=== PATIENT | female | born 1975 | race Caucasian/White ===

== ENCOUNTER 2024-02-23 23:02 | Emergency (ER) | payer OTHER, SELFPAY ==
[2024-02-23 23:03] VITALS: BMI 25.6
[2024-02-23 23:24] VITALS: BP 167/87
[2024-02-24 01:17] LABS: % Basophils 0.7 % (0-2); % Eosinophils 1.3 % (0-6); % Immature Granulocytes 0.3 % (0-0.5); % Lymphocytes 35.7 % (20.5-51.1); % Monocytes 7.9 % (1.7-9.3); % Neutrophils 54.1 % (42.2-75.2); Absolute Basophils 0.1 10^3/uL (0-0.2); Absolute Eosinophils 0.1 10^3/uL (0-0.7); Absolute Lymphocytes 2.7 10^3/uL (1.2-3.4); Absolute Monocytes 0.6 10^3/uL (0.1-0.6); Hematocrit 37.3 % (37.0-47.0); Hemoglobin 12.9 g/dL (12.0-16.0); Mean Corp Hgb Conc. 34.6 g/dL (33.0-37.0); Mean Corpuscular Hgb 30.3 pg (27.0-31.0); Mean Corpuscular Volume 87.6 fL (81.0-99.0); Mean Platelet Volume 9.8 fL (7.4-10.4); Nucleated Red Blood Cells % 0 %; Platelet Count 296 10^3/uL (130-400); Red Blood Cell Count 4.26 10^6/uL (4.20-5.40); Red Cell Dist. Width 13.2 % (11.5-14.5); White Blood Cell Count 7.5 10^3/uL (4.8-10.8)
[2024-02-24 01:20] LABS: Urine Albumin Negative (Neg - Trace); Urine Bilirubin Negative (Negative); Urine Character Clear (Clear); Urine Color Straw; Urine Glucose Negative (Negative); Urine Ketone Trace (Negative); Urine Leukocyte Negative (Negative); Urine Nitrite Negative (Negative); Urine Occult Blood Negative (Negative); Urine Specific Gravity 1.005 (<1.030); Urine Urobilinogen Negative (Neg - 1+)
[2024-02-24 01:21] LABS: HCG, Serum Qualitative Screen Negative
[2024-02-24 01:26] LABS: ALT (SGPT) 18 U/L (0-35); AST (SGOT) 22 U/L (14-36); Albumin 4.4 g/dl (3.5-5.0); Alkaline Phosphatase 72 U/L (38-126); Blood Urea Nitrogen 12 mg/dl (7-17); Calcium 9.6 mg/dl (8.4-10.2); Carbon Dioxide 25 mmol/L (22-30); Chloride 106 mmol/L (98-107); Estimated Creatinine Clearance 60 ml/min; Glucose 99 mg/dl (70-99); Lipase 98 U/L (23-300); Potassium 4.3 mmol/L (3.5-5.1); Sodium 137 mmol/L (135-145); Total Bilirubin 0.2 mg/dl (0.2-1.3); Total Protein 7.3 g/dl (6.3-8.2); eGFR > 60.00
[2024-02-24] MEDS: NSS 1000 IV (01:52)
--- NOTE | 2024-02-24 01:53 | ED.GENMED ---
History of Present Illness
General
Chief Complaint: Abdominal Pain
Source: patient
Exam Limitations: none
Time Seen by Provider: 02/24/24 01:23
Nursing documentation reviewed up to this point in time: agreed with
Travel History
Have you had any contact with someone who has COVID-19?: No
Do you have any symptoms of coronavirus? Fever > 100 degrees, chills, cough, shortness of breath, sore throat, loss of taste or smell, muscle aches, or headache?: No
History of Present Illness
History of Present Illness:
This is a 48-year-old woman who has a history of irritable bowel syndrome, history of interstitial cystitis who complains of 1 week history of suprapubic discomfort, pressure as well as left lower quadrant pain that has worsened over the past 1-1/2
days. She does admit to urinary frequency and mild urgency and feels that she may have a UTI. She denies fever nor chills, no back nor flank pain. Previous UTI October of this year.
She is maintained on Uribel for interstitial cystitis and follows regularly with a urologist.
She has an old prescription for tramadol and took 1 today without relief of pain.
She does admit to mild chronic constipation but passed a normal bowel movement this afternoon without change in pain.
She has prior history of ovarian cysts. Review of previous records reveal pelvic ultrasound 2021 showing complex cystic mass right ovary that resolved on repeat imaging 2022.
Last menstrual period end of January, normal and on time. Maintained on control pills.
Past History
Past History
ED Past Medical History: Psychiatric (Anxiety, insomnia) and Other (Interstitial cystitis, irritable bowel syndrome)
ED Past Surgical History: Gynecological
Social History
Tobacco: Non-smoker
Alcohol: None
Personal:
Living: with family
Employment: Employed
Family History
Family History: Other (Noncontributory)
Phy Exam
Physical Exam
Physical Exam:
GENERAL: 48-year-old woman appears her stated age, bright and alert, pleasant, appears in no acute distress.
EYE:anicteric
NECK: Supple, nontender, no meningismus, no significant adenopathy.
ENT: oral mucosa is moist. No rhinorrhea.
CARDIAC: Regular rate and rhythm. no murmur.
LUNGS: Clear breath sounds bilaterally, no acute respiratory distress, no wheezes/rales/rhonchi
ABDOMEN: Soft, nondistended, minimal tenderness with deep palpation only to the left lower quadrant and suprapubic region without rebound or guarding nor rigidity. Mild palpable firm stool left lower quadrant. no cvat. normoactive BS.
NEUROLOGICAL: Alert and oriented x3, no focal neuro deficits. Gait is steady.
SKIN: Warm and dry, normal color, skin intact. No rash.
MUSCULOSKELETAL: No C/C/E. peripheral pulses are full and equal b/l. No palpable tenderness.
PSYCH: Normal and appropriate interaction.
Course
Orders/Labs/Results
Orders:
Orders
02/23/24 23:29
IV Insert/Care/Rem.- Treatment PRN
Complete Blood Count/With Diff Urgent
Comprehensive Metabolic Panel Urgent
HCG, Serum Qualitative Screen Urgent
Lipase Urgent
Urinalysis Reflex To Culture Urgent
Date Specimen was Collected: 02/23/24
Time Specimen was Collected: 23:30
02/23/24 23:30
Test Result ONCE
02/24/24 01:37
0.9% Sodium Chloride 1000 ml [Nss] 1,000 ml IV BOLUS
02/24/24 01:38
US Pelvis Only (non-obstetric) Urgent
Comment:
Reason For Exam: suprapubic, L pelvic pain x 1 week-worse x 1 day
02/24/24 04:10
Phenazopyridine HCl [Pyridium] 200 mg PO NOW STA
Abnormal Lab Results
02/24/24
01:00
Creatinine 1.1 H mg/dL
(0.6-1.0)
Urine Ketones Trace A
(Negative)
02/24/24 01:00
02/24/24 01:00
Vital Signs
Initial and Last Documented VS:
Initial Vital Signs
Temp Pulse Resp BP Pulse Ox
98.9 F 92 20 167/87 99
02/23/24 23:24 02/23/24 23:24 02/23/24 23:24 02/23/24 23:24 02/23/24 23:24
Last Documented Vital Signs
Temp Pulse Resp BP Pulse Ox
98.9 F 81 20 139/78 97
02/23/24 23:24 02/24/24 05:21 02/24/24 05:21 02/24/24 05:21 02/24/24 05:21
MDM/Problems Addressed
Differential Diagnosis Includes:
Concern for ovarian cyst, ovarian torsion, constipation, UTI, exacerbation of interstitial cystitis, exacerbation of irritable bowel, diverticulitis.
Labs thus far unremarkable with normal white blood cell count, normal chemistries. Urinalysis is pending.
Will plan for pelvic ultrasound assess for potential ovarian cyst/torsion/free fluid.
Chronic conditions affecting care: Other (Interstitial cystitis, irritable bowel syndrome)
*Radiology
Radiology exam reviewed: radiology read reviewed
*Pulse Oximetry
Patient hypoxic: no
*Critical Care Note
Total Time (30-74mins, 75-104mins- exclusive of procedures): Not Applicable
Update Note
Update Note:
Patient continues to appear comfortable.
Labs are all unremarkable with normal white blood cell count, unremarkable chemistries, unremarkable urinalysis.
Pelvic ultrasound shows no evidence of ovarian cyst, no evidence of torsion, no free fluid.
Patient continues to appear comfortable with overall reassuring abdominal exam there is only minimal suprapubic tenderness with deep palpation only, no further tenderness to the left lower quadrant and abdomen is overall soft and benign.
With reassuring labs, unremarkable urinalysis and unremarkable ultrasound at this point no indication for CT of the abdomen and pelvis.
I suspect her suprapubic discomfort is interstitial cystitis in nature and recommend short course of Pyridium for as needed discomfort and to continue Uribel along with prompt follow-up with urologist as well as PCP.
ED Attending Note
-
Portions of this chart may have been created with voice recognition software.� Occasional wrong word or��sound alike� substitutions may have occurred due to the inherent limitations of voice recognition software.
Discharge Plan
Departure
Patient Disposition: Home (Routine Discharge)
Date of Disposition: 02/24/24
Time of Disposition: 04:25
Patient with high blood pressure during this ER visit?: Yes
Condition: Good
Discharge Problem:
Abdominal pain, suprapubic, Pain due to interstitial cystitis
Instructions: Bladder Pain Syndrome (Interstitial Cystitis) (DC)
Prescriptions:
New
phenazopyridine [Pyridium] 200 mg tablet
200 mg PO TID PRN (Reason: bladder pain) 7 Days Qty: 14 0RF
No Action
acetaminophen [Tylenol Extra Strength] 500 MG tablet
1,000 mg PO Q6HPRN PRN (Reason: pain)
bupropion HCl 300 MG tablet extended release 24 hr
300 mg PO DAILY
meclizine 25 MG tablet
25 mg PO Q8H Qty: 15 0RF
pseudoephedrine HCl [Sudogest] 30 MG tablet
30 mg PO Q4HPRN PRN (Reason: nasal congestion) Qty: 15 0RF
ibuprofen 600 MG tablet
600 mg PO Q6HPRN PRN (Reason: pain) Qty: 20 0RF
amoxicillin-pot clavulanate 1 TABLET tablet
1 tab PO Q12 Qty: 14 0RF
Referrals:
Merle Jackman DO [Family Provider] - Call in 1-3 days for appt
Activity Restrictions/Additional Instructions:
Follow-up with your urologist this week for recheck.
Interventions
Interventions:
*Risk Screen - Suicide Last Done: 02/23/24 23:24
*General Assessment Last Done: 02/23/24 23:24
*Neglect/Abuse Screening Last Done: 02/23/24 23:24
ED- Fall Risk Assessment Last Done: 02/23/24 23:24
*ED COVID-19 Vaccine History Last Done: 02/23/24 23:24
*Nursing Disposition Last Done: 02/24/24 05:26
[facility]-My[facility]u-Xyaahgdvrd Assessment Last Done: 02/24/24 01:52
Discharge Date and Time
Discharge Date/Time: 02/24/24 05:27
Print Language: MALTESE
[2024-02-24 02:37] VITALS: BP 141/71
[2024-02-24] MEDS: Pyridium 200 MG PO (04:56)
[2024-02-24 05:21] VITALS: BP 139/78
== END 2024-02-24 05:27 | disposition home or self-care (01) ==
LOC: EMR 23:02
PROVIDERS: EMERGENCY PHYSICIAN Emergency Medicine; FAMILY PHYSICIAN Internal Medicine
DX: R10.2 Pelvic and perineal pain (principal); N30.10 Interstitial cystitis (chronic) without hematuria; R03.0 Elevated blood-pressure reading, without diagnosis of hypertension
CPT/HCPCS: 99284; 96360; 76856; 80053; 81003; 83690; 84703; 85025

== ENCOUNTER 2024-10-04 20:57 | Emergency (ER) | payer OTHER, SELFPAY ==
[2024-10-04 21:00] VITALS: BP 150/80
[2024-10-04 21:27] VITALS: BMI 28.8
[2024-10-04 21:28] VITALS: BP 129/72
[2024-10-04 21:29] LABS: Urine Albumin Negative (Neg - Trace); Urine Bilirubin Negative (Negative); Urine Character Clear (Clear); Urine Color Yellow; Urine Glucose Negative (Negative); Urine Ketone Negative (Negative); Urine Leukocyte Negative (Negative); Urine Nitrite Negative (Negative); Urine Occult Blood Negative (Negative); Urine Urobilinogen Negative (Neg - 1+)
--- NOTE | 2024-10-04 21:42 | ED.GENMED ---
History of Present Illness
General
Chief Complaint: Urinary Symptoms
Source: patient
Time Seen by Provider: 10/04/24 21:14
History of Present Illness
History of Present Illness:
49-year-old female presents emergency room complaining of bilateral flank pain. Patient has been experience the pain for the past week or so. She had blood work performed by her primary care doctor couple days ago and she was told her creatinine
was abnormally high. She was instructed to get imaging to rule out any kidney problems. In addition the patient has noted some increased dysuria and frequency. No fever or chills. Movement does not seem to make her back pain any worse.
Past History
Past History
ED Past Medical History: Psychiatric (Anxiety, insomnia) and Other (Interstitial cystitis, irritable bowel syndrome)
ED Past Surgical History: Gynecological
Social History
Tobacco: Non-smoker
Alcohol: None
Personal:
Living: with family
Employment: Employed
Family History
Family History: Other (Noncontributory)
Phy Exam
Physical Exam
Physical Exam:
General: Awake, Alert, Oriented X3. No acute distress.
Vitals: unremarkable
Head: Atraumatic
Eyes: Pupils equal, EOMI
Throat: Airway intact, no exudates
Neck: Trachea midline
Lungs: Clear and equal b/l
Heart: Regular rate, no murmurs
Abd: Soft, very mild suprapubic tenderness, No pulsatile mass
Back: Mild CVA tenderness bilateral
Neuro: Nonfocal
Skin: Warm, dry, no rash
Extremities: pulses equal b/l, no edema
Course
Orders/Labs/Results
Orders:
Orders
10/04/24 21:22
Complete Blood Count/With Diff Urgent
Comprehensive Metabolic Panel Urgent
Urinalysis Reflex To Culture Urgent
Date Specimen was Collected: 10/04/24
Time Specimen was Collected: 21:14
10/04/24 21:41
US Renal With Bladder Urgent
Comment:
Reason For Exam: flank pain, elevated creat
Abnormal Lab Results
10/04/24
21:22
RBC 4.05 L 10^6/uL
(4.20-5.40)
Hct 35.9 L %
(37.0-47.0)
Absolute Monos (auto) 0.7 H 10^3/uL
(0.1-0.6)
10/04/24 21:22
10/04/24 21:22
Vital Signs
Initial and Last Documented VS:
Initial Vital Signs
Temp Pulse Resp BP Pulse Ox
98.3 F 84 19 150/80 100
10/04/24 21:00 10/04/24 21:00 10/04/24 21:00 10/04/24 21:00 10/04/24 21:00
Last Documented Vital Signs
Temp Pulse Resp BP Pulse Ox
98.3 F 84 19 116/70 97
10/04/24 21:00 10/04/24 21:00 10/04/24 21:00 10/04/24 22:00 10/04/24 22:45
MDM/Problems Addressed
Differential Diagnosis Includes:
Low back strain, urinary tract infection, kidney stone
MDM/Problems Addressed:
Labs here tone normal. Ultrasound of the kidneys and bladder is also normal. Patient's discomfort likely related to musculoskeletal back pain. Stable for discharge home.
*Radiology
Radiology exam reviewed: radiology read reviewed
*Pulse Oximetry
Patient hypoxic: no
*Critical Care Note
Total Time (30-74mins, 75-104mins- exclusive of procedures): Not Applicable
ED Attending Note
-
Portions of this chart may have been created with voice recognition software.� Occasional wrong word or��sound alike� substitutions may have occurred due to the inherent limitations of voice recognition software.
Discharge Plan
Departure
Patient Disposition: Home (Routine Discharge)
Date of Disposition: 10/04/24
Time of Disposition: 22:42
Patient with high blood pressure during this ER visit?: No
Condition: Good
Discharge Problem:
Bilateral flank pain
Instructions: Back Pain
Prescriptions:
No Action
acetaminophen [Tylenol Extra Strength] 500 MG tablet
1,000 mg PO Q6HPRN PRN (Reason: pain)
bupropion HCl 300 MG tablet extended release 24 hr
300 mg PO DAILY
meclizine 25 MG tablet
25 mg PO Q8H Qty: 15 0RF
pseudoephedrine HCl [Sudogest] 30 MG tablet
30 mg PO Q4HPRN PRN (Reason: nasal congestion) Qty: 15 0RF
ibuprofen 600 MG tablet
600 mg PO Q6HPRN PRN (Reason: pain) Qty: 20 0RF
amoxicillin-pot clavulanate 1 TABLET tablet
1 tab PO Q12 Qty: 14 0RF
phenazopyridine [Pyridium] 200 mg tablet
200 mg PO TID PRN (Reason: bladder pain) 7 Days Qty: 14 0RF
Referrals:
Merle Jackman, DO [Family Provider] -
Activity Restrictions/Additional Instructions:
Your kidney function test is normal today. Your ultrasound is also normal. Suspect your back pain is more related to musculoskeletal back pain. You can use Tylenol Motrin as needed.
Interventions
Interventions:
*Risk Screen - Suicide Last Done: 10/04/24 21:00
*General Assessment Last Done: 10/04/24 21:27
*Neglect/Abuse Screening Last Done: 10/04/24 21:00
ED- Fall Risk Assessment Last Done: 10/04/24 21:35
*ED COVID-19 Vaccine History Last Done: 10/04/24 21:00
*Nursing Disposition Last Done: 10/04/24 22:55
ED-Female Genitourinary Assessment Last Done: 10/04/24 21:15
Discharge Date and Time
Discharge Date/Time: 10/04/24 22:58
Print Language: HUNGARIAN
[2024-10-04 21:46] LABS: % Basophils 0.6 % (0-2); % Eosinophils 1.2 % (0-6); % Immature Granulocytes 0.2 % (0-0.5); % Lymphocytes 29.4 % (20.5-51.1); % Monocytes 7.3 % (1.7-9.3); % Neutrophils 61.3 % (42.2-75.2); Absolute Basophils 0.1 10^3/uL (0-0.2); Absolute Eosinophils 0.1 10^3/uL (0-0.7); Absolute Lymphocytes 2.6 10^3/uL (1.2-3.4); Absolute Monocytes 0.7 10^3/uL (0.1-0.6); Absolute Neutrophils 5.5 10^3/uL (1.4-6.5); Hematocrit 35.9 % (37.0-47.0); Hemoglobin 12.2 g/dL (12.0-16.0); Mean Corpuscular Hgb 30.1 pg (27.0-31.0); Mean Corpuscular Volume 88.6 fL (81.0-99.0); Nucleated Red Blood Cells % 0 %; Platelet Count 305 10^3/uL (130-400); Red Blood Cell Count 4.05 10^6/uL (4.20-5.40); Red Cell Dist. Width 12.8 % (11.5-14.5); White Blood Cell Count 8.9 10^3/uL (4.8-10.8)
[2024-10-04 21:52] LABS: ALT (SGPT) 14 U/L (0-35); AST (SGOT) 18 U/L (14-36); Albumin 4.2 g/dl (3.5-5.0); Alkaline Phosphatase 61 U/L (38-126); Blood Urea Nitrogen 10 mg/dl (7-17); Carbon Dioxide 28 mmol/L (22-30); Chloride 101 mmol/L (98-107); Estimated Creatinine Clearance 72 ml/min; Glucose 76 mg/dl (70-99); Potassium 3.9 mmol/L (3.5-5.1); Sodium 135 mmol/L (135-145); Total Bilirubin 0.2 mg/dl (0.2-1.3); Total Protein 6.7 g/dl (6.3-8.2); eGFR > 60.00
[2024-10-04 22:00] VITALS: BP 116/70
== END 2024-10-04 22:58 | disposition home or self-care (01) ==
LOC: EMR 20:57
PROVIDERS: EMERGENCY PHYSICIAN Emergency Medicine; FAMILY PHYSICIAN Internal Medicine
DX: R10.9 Unspecified abdominal pain (principal); M54.9 Dorsalgia, unspecified; R30.0 Dysuria
CPT/HCPCS: 99284; 76770; 80053; 81003; 85025

== ENCOUNTER 2025-09-24 21:32 | Emergency (ER) | payer OTHER, SELFPAY ==
[2025-09-24 21:34] VITALS: BP 109/70
[2025-09-24 22:20] VITALS: BP 117/56
[2025-09-24 22:32] LABS: Hematocrit 33.3 % (37.0-47.0); Hemoglobin 11.1 g/dL (12.0-16.0); Mean Corp Hgb Conc. 33.3 g/dL (33.0-37.0); Mean Corpuscular Volume 88.8 fL (81.0-99.0); Nucleated Red Blood Cells % 0 %; Platelet Count 381 10^3/uL (130-400); Red Cell Dist. Width 12.7 % (11.5-14.5)
[2025-09-24 22:47] LABS: APTT 29.5 Sec (23.4-35.0)
[2025-09-24 22:54] LABS: ALT (SGPT) 11 U/L (0-35); AST (SGOT) 16 U/L (14-36); Albumin 4.6 g/dl (3.5-5.0); Alkaline Phosphatase 61 U/L (38-126); Blood Urea Nitrogen 9 mg/dl (7-17); Calcium 9.7 mg/dl (8.4-10.2); Carbon Dioxide 25 mmol/L (22-30); Chloride 104 mmol/L (98-107); Glucose 69 mg/dl (70-99); Potassium 4.0 mmol/L (3.5-5.1); Sodium 134 mmol/L (135-145); Total Protein 7.5 g/dl (6.3-8.2); eGFR 54.80
[2025-09-25] VITALS: BP 111/63
[2025-09-25] MEDS: NSS 1000 IV (00:45)
--- NOTE | 2025-09-25 00:54 | ED.GENMED ---
History of Present Illness
General
Chief Complaint: Dizziness
Source: patient
Exam Limitations: none
Time Seen by Provider: 09/24/25 23:05
Nursing documentation reviewed up to this point in time: agreed with
History of Present Illness
History of Present Illness:
50-year-old female presenting to the emergency department today with concerns of lightheadedness. She believes this is from ongoing bleeding over the past 2 months was deemed to be from a dental myosis and fibroids. She was placed on progesterone
but has not had significant improvement. Noted some lightheadedness today which prompted her to come to the ER. Has had some intermittent cramping as well in the pelvic region. Denies any specific chest pain fevers or upper respiratory
Past History
Past History
ED Past Medical History: Psychiatric (Anxiety, insomnia) and Other (Interstitial cystitis, irritable bowel syndrome)
ED Past Surgical History: Gynecological
Social History
Tobacco: Non-smoker
Alcohol: None
Personal:
Living: with family
Employment: Employed
Family History
Family History: Other (Noncontributory)
Review of Systems
Review of Systems
Allergies reviewed?: Yes
All Other Systems: ROS reviewed and negative except as documented in HPI and ROS
Phy Exam
Physical Exam
Physical Exam:
GENERAL: Alert , in no apparent distress
EYE: pupils equal and reactive
NECK: Supple, no significant adenopathy.
ENT: o/p clr, mmm.
CARDIAC: Regular rate and rhythm .
LUNGS: Clear breath sounds bilaterally, no acute respiratory distress, no wheezes/rales/rhonchi
ABDOMEN: Soft, without focal tenderness, no r/g, no cvat
NEUROLOGICAL: Alert and oriented, no focal neuro deficits
SKIN: Warm and dry, skin intact.
MUSCULOSKELETAL: No edema, well perfused.
PSYCH: Normal and appropriate interaction.
Course
Orders/Labs/Results
Orders:
Orders
09/24/25 22:16
Type And Crossmatch [Type+Screen] Urgent
Complete Blood Count/With Diff Urgent
Comprehensive Metabolic Panel Urgent
PTT Urgent
09/24/25 23:11
EKG [Electrocardiogram (*1)] Urgent
Reason for Study: Vertigo / Dizzy
EKG- Treatment ONCE
09/24/25 23:48
0.9% Sodium Chloride 1000 ml [Nss] 1,000 ml IV BOLUS
09/25/25 00:00
US Pelvis Only (non-obstetric) Urgent
Reason For Exam: bleeding pain
Abnormal Lab Results
09/24/25 09/25/25
22:16 00:48
RBC 3.75 L 10^6/uL
(4.20-5.40)
Hgb 11.1 L g/dL
(12.0-16.0)
Hct 33.3 L %
(37.0-47.0)
Sodium 134 L mmol/L
(135-145)
Creatinine 1.2 H mg/dL
(0.6-1.0)
Glucose 69 L mg/dl
(70-99)
POC Glucose 115 H mg/dl
(70-99)
09/24/25 22:16
09/24/25 22:16
Vital Signs
Initial and Last Documented VS:
Initial Vital Signs
Temp Pulse Resp BP Pulse Ox
98.6 F 91 18 109/70 98
09/24/25 21:34 09/24/25 21:34 09/24/25 21:34 09/24/25 21:34 09/24/25 21:34
Last Documented Vital Signs
Temp Pulse Resp BP Pulse Ox
98.6 F 68 19 111/63 98
09/24/25 21:34 09/25/25 00:00 09/25/25 00:00 09/25/25 00:00 09/25/25 00:55
MDM/Problems Addressed
MDM/Problems Addressed:
50-year-old female presenting with concerns ongoing bleeding over the past 2 months. On arrival here vital signs are normal patient no distress no reproducible pain to the abdomen labs showing hemoglobin of 11.1 baseline of 12 liver labs
unremarkable. The case was discussed with gynecology who claims that she can follow-up closely as an outpatient. Ultrasound was performed that confirmed the adenomyosis as well as fibroid. Patient was otherwise given strict return precautions for
any progressive or worsening symptoms.
*Pulse Oximetry
SaO2: 98
Oxygen Mode of Delivery: Room air
Patient hypoxic: no (98)
*Critical Care Note
Total Time (30-74mins, 75-104mins- exclusive of procedures): Not Applicable
ED Attending Note
-
Portions of this chart may have been created with voice recognition software.� Occasional wrong word or��sound alike� substitutions may have occurred due to the inherent limitations of voice recognition software.
Discharge Plan
Departure
Patient Disposition: Home (Routine Discharge)
Date of Disposition: 09/25/25
Time of Disposition: 03:55
Patient with high blood pressure during this ER visit?: No
Condition: Good
Covid-19: Not Applicable
Discharge Problem:
Lightheadedness, Vaginal bleeding
Instructions: Dizziness, Nonvertigo, (DC)
Prescriptions:
No Action
acetaminophen [Tylenol Extra Strength] 500 MG tablet
1,000 mg PO Q6HPRN PRN (Reason: pain)
bupropion HCl 300 MG tablet extended release 24 hr
300 mg PO DAILY
meclizine 25 MG tablet
25 mg PO Q8H Qty: 15 0RF
pseudoephedrine HCl [Sudogest] 30 MG tablet
30 mg PO Q4HPRN PRN (Reason: nasal congestion) Qty: 15 0RF
ibuprofen 600 MG tablet
600 mg PO Q6HPRN PRN (Reason: pain) Qty: 20 0RF
amoxicillin-pot clavulanate 1 TABLET tablet
1 tab PO Q12 Qty: 14 0RF
phenazopyridine [Pyridium] 200 mg tablet
200 mg PO TID PRN (Reason: bladder pain) 7 Days Qty: 14 0RF
Referrals:
Merle Jackman DO [Family Provider, Internal Medicine]
Consuelo Lagos MD [Active, Gynecology] - Follow up in 2-3 days
Activity Restrictions/Additional Instructions:
You came to the emergency department today with concerns of ongoing vaginal bleeding and lightheadedness and weakness. Here you have a reassuring assessment. Please follow-up closely with gynecology. Return for any worsening, new or concerning
symptoms.
Interventions
Interventions:
*Risk Screen - Suicide Last Done: 09/24/25 21:39
*General Assessment Last Done: 09/24/25 21:39
*Neglect/Abuse Screening Last Done: 09/24/25 21:39
*ED COVID-19 Vaccine History Last Done: 09/24/25 21:39
*ED Influenza Vaccine History Last Done: 09/24/25 21:39
[facility] Risk Assessment Tool Last Done: 09/24/25 22:25
ED- Neurological Assessment Last Done: 09/24/25 22:29
ED Swallowing Screen Last Done: 09/24/25 22:29
Discharge Date and Time
Print Language: SETSWA[place]
[2025-09-25 00:55] LABS: Glucose - Point of Care 115 mg/dl (70-99)
[2025-09-25 02:00] VITALS: BP 98/60
[2025-09-25 03:00] VITALS: BP 98/64
[2025-09-25 04:00] VITALS: BP 97/55
== END 2025-09-25 04:09 | disposition home or self-care (01) ==
LOC: EMR 21:32
PROVIDERS: Emergency Medicine; EMERGENCY PHYSICIAN Student in an Organized Health Care Education/Training Program; FAMILY PHYSICIAN Internal Medicine
DX: R42 Dizziness and giddiness (principal); N93.9 Abnormal uterine and vaginal bleeding, unspecified; F41.9 Anxiety disorder, unspecified; N30.10 Interstitial cystitis (chronic) without hematuria; K58.9 Irritable bowel syndrome, unspecified; Z86.018 Personal history of other benign neoplasm
CPT/HCPCS: 99284; 96360; 76856; 80053; 82962; 85025; 85730; 86850; 86900; 86901; 93005